=== PATIENT | male | born 1945 | race Caucasian/White ===

== ENCOUNTER 2018-02-12 06:24 | Day surgery (SDC) | payer MEDICARE ==
[2018-02-03 13:59] VITALS: BMI 30.7
[2018-02-12] MEDS ORDERED: Propofol 10 mg/ml Inj (20 ML) ONE (08:05)
[2018-02-12] MEDS ORDERED: Lidocaine 2% Inj (20ml) ONE (08:05)
[2018-02-12] MEDS ORDERED: Sodium Chloride 0.9% 1,000 ML IV SCH (08:15)
[2018-02-12 09:14] VITALS: BP 137/76; PULSE 58; RESP 16; TEMP 97.8; O2SAT 99
== END 2018-02-12 09:26 | disposition home or self-care (01) ==
LOC: ENDO 06:24
PROVIDERS: ATTEND Specialist
DX: K22.70 Barrett's esophagus without dysplasia (principal); D50.9 Iron deficiency anemia, unspecified; K29.50 Unspecified chronic gastritis without bleeding; K44.9 Diaphragmatic hernia without obstruction or gangrene; I12.9 Hypertensive chronic kidney disease with stage 1 through stage 4 chronic kidney disease, or unspecified chronic kidney disease; N18.9 Chronic kidney disease, unspecified; Z85.46 Personal history of malignant neoplasm of prostate
CPT/HCPCS: 43239; 88305; 88312; 88342; J2704; J7030